=== PATIENT | female | born 1980 | race Caucasian/White ===

== ENCOUNTER 2016-06-02 15:36 | Emergency (ER) | payer OTHER ==
[~2016-06-02] VITALS: Ht 162.6 cm; Wt 122.5 kg
[~2016-06-02 15:36] MED LIST: ALLOPURINOL300 M1 PO; ASPIRIN81 M1 PO; CIPRO500 M1 PO; CYCLOBENZAPRINE10 M1 PO; FLEXERIL10 MG PO; FLOMAX(MONOGRA0.4 MG PO; GOOD SENSE IBU200 MG PO; LABETALOL HCL300 MG PO; LABETALOL HYDR200 MG PO; LEVSIN0.125 MG PO; MOTRIN600 MG PO; PERCOCET 325 MG1 TA2 PO; PERCOCET 5-3251 EACH PO; PRENATAL VITAMI1 TA4 PO; SERTRALINE HCL100 MG PO; TRAMADOL50 MG PO; UROCIT-K15 ME1 PO; XANAX1 M1 PO; ZOFRAN 4 MG TABL4 MG PO; ZOFRAN ODT4 MG PO
--- NOTE | 2016-06-02 18:41 | ED GI/GU/ABDOMINAL COMPLAINT ---
History of Present Illness General Chief Complaint: Abdominal Pain/Flank Pain Stated Complaint: LEFT FLANK PAIN, NAUSEA, VOMITTING Source: patient Exam Limitations: no limitations Vital Signs & Intake/Output Vital Signs & Intake/Output Vital Signs Date Time Temp Pulse Resp B/P Pulse O2 O2 Flow FiO2 Ox Delivery Rate 06/02 2100 98.2 77 16 154/95 97 Room Air 06/02 1551 96.7 84 18 140/100 97 Room Air Allergies Coded Allergies: Penicillins (Severe, THROAT CLOSES 10/18/15) Iodinated Contrast Media - Oral and (IODINATED CONTRAST MEDIA - IV DYE) ( Intermediate, PRURITIS 10/18/15) iodine (Mild, ITCHING 10/18/15) meperidine (Mild, ITCHING 10/18/15) Reconcile Medications Alprazolam (Xanax) 1 MG TABLET 1 TAB PO TID PRN ANXIETY (Reported) Levonorgestrel (Mirena) 20 MCG/24 HOUR (5 YEARS) IUD CONTROL (Reported) Oxycodone HCl/Acetaminophen (Percocet 5-325 MG Tablet) 5 MG-325 MG TABLET 1 TAB PO Q6HR PRN PAIN Quetiapine Fumarate 100 MG TABLET 1 TAB PO PRN SLEEPING (Reported) Sertraline HCl 100 MG TABLET 2 TAB PO DAILY MENTAL HEALTH (Reported) Triage Note: PT TO TRIAGE WITH C/O L FLANK PAIN 8/10, PAIN WITH URINATION, LUQ ABD PAIN, NAUSEA, VOMITINGx1 SINCE THIS MORNING, DIARRHEA xWEEK. PT AFEBRILE,VSS. HX OF KIDNEY STONES AND CROHN'S. Triage Nurses Notes Reviewed? yes ? n Is pt currently ? No Onset: Gradual Duration: hour(s): (4) Timing: recent history Quality/Severity: sharpness Severity Numbers: 8 Location: left flank Radiation: LLQ Activities at Onset: none Prior Abdominal Problems: similar symptoms Past Sexual History: Unobtainable at this time No Modifying Factors: none HPI: Patient is a 36-year-old female with history of Crohn's and kidney stones and anxiety presenting to the emergency department with chief complaint of left flank pain has been going on for the past 4-5 hours. Pain is sharp in nature. Pain radiates to the left lower quadrant. Patient has associated nausea but no vomiting. She did have some dysuria yesterday but none today. She has not noticed any hematuria. Positive history kidney stones. She had a ureteral stent placed in April that was removed because her body was rejecting it. Denies any diarrhea. No change in bowel habits. She does report decreased by mouth intake over the past several days because she had a viral syndrome for which she was diagnosed at an urgent care. She also had fevers a few days ago. No fever today. Denies any headaches. No lightheadedness or dizziness. She does not take anything daily for her Crohn's. (MUNA FOX) Past History Travel History Traveled to [place] past 21 day No Medical History Any Pertinent Medical History? see below for history Neurological: NONE EENT: NONE Cardiovascular: hypertension Respiratory: NONE Gastrointestinal: Crohn's disease, irritable bowel syndrome, pancreatitis Hepatic: FATTY LIVER Renal: nephrolithiasis Psychiatric: anxiety Blood Disorders: NONE Cancer(s): NONE Surgical History Surgical History: cholecystectomy (OPEN), , COLON RESECTION Psychosocial History Who do you live with Patient/Self Services at Home None What is your primary language Urdu Tobacco Use: Never used Family History Hx Contributory? No (MUNA FOX) Review of Systems Review of Systems Constitutional: Reports: fever. Comments Review of systems: See HPI, All other systems negative. Constitutional, no chills fever or weight loss HEENT: No visual changes no sore throat no congestion Cardiovascular: No chest pain ,palpitation Skin, no jaundice no rashes Respiratory: No dyspnea cough sputum or hemoptysis GI: no vomiting : No hematuria Muscle skeletal: no back pain, no neck pain, Neurologic: No numbness no confusion no jordan Psych: No stress anxiety Immunology: No splenectomy or history of AIDS (MUNA FOX) Physical Exam Physical Exam General Appearance: well developed/nourished, no apparent distress, alert, awake , comfortable Gastrointestinal: normal bowel sounds, soft, guarding, tenderness Comments: Well-developed well-nourished person in no acute distress HEENT: . Pupils equally round and reactive to light and accommodation. Nose is atraumatic. Neck: Normal inspection Back: Nontender, no CVA tenderness. Cardiovascular: Regular rate and rhythms no murmurs rubs or gallops Respiratory: No respiratory distress.breath sounds clear to auscultation bilaterally Abdomen: Soft, obese, tender to palpation in the periumbilical, left lower quadrant and left upper quadrant with mild guarding, nondistended, no appreciable organomegaly. Normal bowel sounds. No ascites Extremity: No edema Neuro: Alert oriented x3 Skin: No appreciable rash on exposed skin, skin is warm and dry. Psych: Mood and affect is normal, memory and judgment is normal. Core Measures ACS in differential dx? No Severe Sepsis Present: No Septic Shock Present: No (VLAD GUARDADO,MUNA) Progress Differential Diagnosis: pyelonephritis, hydronephrosis, ureterolithiasis, diverticulitis, Crohn's flareup, gastritis Plan of Care: Orders Procedure Date/time Status Add-on Test (ER Only) 06/02 2046 Active CULTURE,URINE 06/02 1925 Active COMPREHENSIVE METABOLIC PANEL 06/02 1840 Complete CBC WITHOUT DIFFERENTIAL 06/02 1840 Complete URINE 06/02 1755 Complete URINALYSIS 06/02 1755 Complete Laboratory Tests 06/02/16 1950: CBC w Diff NO MAN DIFF REQ, RBC 5.63 H, MCV 80.8 L, MCH 27.4, RDW 13.8, MPV 7.6, Gran % 51.6, Lymphocytes % 33.8, Monocytes % 11.1 H, Eosinophils % 3.1, Basophils % 0.4, Absolute Granulocytes 3.5, Absolute Lymphocytes 2.3, Absolute Monocytes 0.8 H, Absolute Eosinophils 0.2, Absolute Basophils 0, PUBS MCHC 33.9 06/02/161925: Urine Color YEL, Urine Clarity CLDY H, Urine pH 7.0, Ur Specific [place] 1.020, Urine Protein 30 H, Urine Ketones TRACE H, Urine Nitrite NEG, Urine Bilirubin NEG@ICTO, Urine Urobilinogen 1.0, Ur Leukocyte Esterase SMALL H, Ur Microscopic SEDIMENT EXAMINED, Urine WBC 5-10 H, Ur Epithelial Cells MOD H, Urine Crystals 1+ CA OX H, Urine Mucus MANY H, Urine Hemoglobin NEG, Urine Glucose NEG, Urine Test NEGATIVE 06/02/161849: Anion Gap 11, Estimated GFR > 60, BUN/Creatinine Ratio 20.0, Glucose 86, Calcium 9.5, Total Bilirubin 0.7, AST 37 H, ALT 78 H, Alkaline Phosphatase 68, Total Protein 6.8, Albumin 3.9, Globulin 2.9, Albumin/Globulin Ratio 1.3 Microbiology 06/02 1925 URINE ROUT: Urine Culture - RECD Diagnostic Imaging: Viewed by Me: CT Scan. Discussed w/RAD: CT Scan. Radiology Impression: PATIENT: ROBIN SCOTT PRESENT AGE: 36 PATIENT ACCOUNT NO: [id number] : 81 LOCATION: [facility] ORDERING PHYSICIAN: MUNA GUARDADO SERVICE DATE: 06/02/16 EXAM TYPE: CAT - CT ABD & PELVIS W/O IV CONTRAS EXAMINATION: CT ABDOMEN AND PELVIS WITHOUT CONTRAST CLINICAL INFORMATION: Left flank pain. COMPARISON: 12/04/2015 TECHNIQUE : Multidetector volumetric imaging was performed from the superior aspect of the liver through the pubic symphysis. Sagittal and coronal reformatted images were obtained on the technologist's workstation. DLP: 1414 mGy-cm FINDINGS: LUNG BASES: The visualized lung bases are unremarkable. LIVER, GALLBLADDER, AND BILIARY TREE: The liver is normal in size and shape with decreased attenuation. No biliary ductal dilatation is present. Multiple areas of focal fatty sparing are again noted with a somewhat nodular appearance. The gallbladder is absent. PANCREAS: Unremarkable. SPLEEN: Unremarkable. ADRENAL GLANDS: Unremarkable. KIDNEYS AND URETERS: The kidneys are normal in size, shape, and attenuation. No hydronephrosis, hydroureter, or calculi seen. No perinephric stranding. BLADDER: Unremarkable. GASTROINTESTINAL TRACT: The stomach and small bowel appear unremarkable. No dilated loops of bowel or evidence of obstruction. Anastomotic suture line at the hepatic flexure of the colon, consistent with partial colectomy. This is unchanged. No free air or free fluid. ABDOMINAL WALL: No significant hernia is appreciated. LYMPH NODES: Normal. VASCULAR: Unremarkable. PELVIC VISCERA: An IUD is in place. No adnexal mass. OSSEOUS STRUCTURES: No acute or suspicious osseous abnormality. IMPRESSION: No acute findings of the abdomen or pelvis. No hydronephrosis or nephrolithiasis. Hepatic steatosis. DICTATED BY: PHILIPP NUNEZ MD DATE/TIME DICTATED:06/02/162013 STABILIZING MACHINE OPERATOR:LUISA DATE/TIME TRANSCRIBED:06/02/162013 CONFIDENTIAL, DO NOT COPY WITHOUT APPROPRIATE AUTHORIZATION. <Electronically signed in Other Vendor System> SIGNED BY: PHILIPP NUNEZ MD 06/02/162025 Initial ED EKG: none Comments: 06/02/2016 6:49:20 PM on arrival patient in no acute distress, afebrile. She does have reproducible pain in the left lower quadrant and left flank region. No CVA tenderness. Patient has recent history of ureterolithiasis with stent placement. She was complaining about dysuria yesterday. Considering kidney stone. Patient will have CBC, CMP, urinalysis, urine . IV fluids initiated. 06/02/2016 8:46:51 PM patient feeling much better after Zofran and morphine. Patient was informed of all laboratory results and imaging study results. There are crystals in the urine but no obvious stone on CAT scan. It was explained that there potentially could be a small stone. She'll follow-up with her urologist. Urine culture sent. (VLAD GUARDADO,MUNA) Departure Departure Time of Disposition: 2044 Disposition: HOME OR SELF CARE Condition: Stable Clinical Impression Primary Impression: Flank pain Referrals: ROQUE HUGHES MD (PCP/Family) Additional Instructions: Follow-up with your urologist. Increase fluids. Take Percocet as prescribed for pain. Use restrainer they have at home and see if he gets any stones. Attach ARE YOUR CAT scan results. PATIENT: ROBIN SCOTT PRESENT AGE: 36 PATIENT ACCOUNT NO: [id number] : 81 LOCATION: [facility] ORDERING PHYSICIAN: MUNA GUARDADO SERVICE DATE: 06/02/16 EXAM TYPE: CAT - CT ABD & PELVIS W/O IV CONTRAS EXAMINATION: CT ABDOMEN AND PELVIS WITHOUT CONTRAST CLINICAL INFORMATION: Left flank pain. COMPARISON: 12/04/2015 TECHNIQUE: Multidetector volumetric imaging was performed from the superior aspect of the liver through the pubic symphysis. Sagittal and coronal reformatted images were obtained on the technologist's workstation. DLP: 1414 mGy-cm FINDINGS: LUNG BASES: The visualized lung bases are unremarkable. LIVER, GALLBLADDER, AND BILIARY TREE: The liver is normal in size and shape with decreased attenuation. No biliary ductal dilatation is present. Multiple areas of focal fatty sparing are again noted with a somewhat nodular appearance. The gallbladder is absent. PANCREAS: Unremarkable. SPLEEN: Unremarkable. ADRENAL GLANDS: Unremarkable. KIDNEYS AND URETERS: The kidneys are normal in size, shape, and attenuation. No hydronephrosis, hydroureter, or calculi seen. No perinephric stranding. BLADDER: Unremarkable. GASTROINTESTINAL TRACT: The stomach and small bowel appear unremarkable. No dilated loops of bowel or evidence of obstruction. Anastomotic suture line at the hepatic flexure of the colon, consistent with partial colectomy. This is unchanged. No free air or free fluid. ABDOMINAL WALL: No significant hernia is appreciated. LYMPH NODES: Normal. VASCULAR: Unremarkable. PELVIC VISCERA: An IUD is in place. No adnexal mass. OSSEOUS STRUCTURES: No acute or suspicious osseous abnormality. IMPRESSION: No acute findings of the abdomen or pelvis. No hydronephrosis or nephrolithiasis. Hepatic steatosis. DICTATED BY: PHILIPP NUNEZ MD DATE/TIME DICTATED:06/02/162013 STABILIZING MACHINE OPERATOR:LUISA DATE/TIME TRANSCRIBED:06/02/162013 CONFIDENTIAL, DO NOT COPY WITHOUT APPROPRIATE AUTHORIZATION. <Electronically signed in Other Vendor System> SIGNED BY: PHILIPP NUNEZ MD 06/02 Departure Forms: Customer Survey General Discharge Information Prescriptions: Current Visit Scripts Oxycodone HCl/Acetaminophen (Percocet 5-325 MG Tablet) 1 TAB PO Q6HR PRN PAIN #10 TAB (MUNA FOX) PA/AUDITOR/QUALITY Co-Sign Statement Statement: ED Attending supervision documentation- [] I saw and evaluated the patient. I have also reviewed all the pertinent lab results and diagnostic results. I agree with the findings and the plan of care as documented in the PA's/AUDITOR/QUALITY's documentation. x I have reviewed the ED Record and agree with the PA's/AUDITOR/QUALITY's documentation. [] Additions or exceptions (if any) to the PAs/AUDITOR/QUALITY's note and plan are summarized below: [] (KHUSHBU SANCHEZ,OSKAR)
[2016-06-02] MEDS ORDERED: QUETIAPINE FUM100 M1 PO (19:39)
[2016-06-02] MEDS ORDERED: MIRENA1 EACH (19:40)
[2016-06-02 19:41] LABS: ABSOLUTE BASOPHIL COUNT 0 /CUMM (0.0-0.2); ABSOLUTE EOSINOPHIL COUNT 0.2 /CUMM (0.0-0.7); ABSOLUTE GRANULOCYTE CT 3.5 /CUMM (1.4-6.5); ABSOLUTE LYMPH COUNT 2.3 /CUMM (1.2-3.4); ABSOLUTE MONOCYTE COUNT 0.8 /CUMM (0.10-0.60); BASOPHIL % 0.4 % (0.0-2.0); EOSINOPHIL % 3.1 % (0-5); GRANULOCYTE % 51.6 % (42.2-75.2); HEMATOCRIT 45.5 % (37-47); MEAN CORPUSCULAR HGB 27.4 PG (27.0-31.0); MEAN CORPUSCULAR HGB CONC 33.9 G/DL (33.0-37.0); MEAN CORPUSCULAR VOLUME 80.8 FL (81.0-99.0); MEAN PLATELET VOLUME 7.6 FL (7.4-10.4); PLATELET COUNT 333 /CUMM (130-400); RBC DISTRIBUTION WIDTH 13.8 % (11.5-14.5); RED BLOOD CELL CT 5.63 /CUMM (4.20-5.40); WHITE BLOOD CELL COUNT 6.8 /CUMM (4.8-10.8)
--- NOTE | 2016-06-02 20:26 | CT SCAN REPORT ---
EXAMINATION: CT ABDOMEN AND PELVIS WITHOUT CONTRAST CLINICAL INFORMATION: Left flank pain. COMPARISON: 12/04/2015 TECHNIQUE: Multidetector volumetric imaging was performed from the superior aspect of the liver through the pubic symphysis. Sagittal and coronal reformatted images were obtained on the technologist's workstation. DLP: 1414 mGy-cm FINDINGS: LUNG BASES: The visualized lung bases are unremarkable. LIVER, GALLBLADDER, AND BILIARY TREE: The liver is normal in size and shape with decreased attenuation. No biliary ductal dilatation is present. Multiple areas of focal fatty sparing are again noted with a somewhat nodular appearance. The gallbladder is absent. PANCREAS: Unremarkable. SPLEEN: Unremarkable. ADRENAL GLANDS: Unremarkable. KIDNEYS AND URETERS: The kidneys are normal in size, shape, and attenuation. No hydronephrosis, hydroureter, or calculi seen. No perinephric stranding. BLADDER: Unremarkable. GASTROINTESTINAL TRACT: The stomach and small bowel appear unremarkable. No dilated loops of bowel or evidence of obstruction. Anastomotic suture line at the hepatic flexure of the colon, consistent with partial colectomy. This is unchanged. No free air or free fluid. ABDOMINAL WALL: No significant hernia is appreciated. LYMPH NODES: Normal. VASCULAR: Unremarkable. PELVIC VISCERA: An IUD is in place. No adnexal mass. OSSEOUS STRUCTURES: No acute or suspicious osseous abnormality. IMPRESSION: No acute findings of the abdomen or pelvis. No hydronephrosis or nephrolithiasis. Hepatic steatosis.
[2016-06-02] MEDS ORDERED: PERCOCET 5-3251 EACH PO (20:49)
[2016-06-02 21:00] VITALS: BP 154/95
== END 2016-06-02 21:06 ==
LOC: ERH 15:36
PROVIDERS: Physician Assistant
DX: R10.32 Left lower quadrant pain (principal)
CPT/HCPCS: 74176; 81001; 81025; 87086; 96361; 96374; 96375; J2405

== ENCOUNTER 2017-07-21 11:21 | Emergency (ER) | payer OTHER ==
[~2017-07-21] VITALS: Ht 162.6 cm; Wt 117.9 kg
[~2017-07-21 11:21] MED LIST changes: +LEVSIN-SL0.125 MG SL; +MIRENA1 EACH; +QUETIAPINE FUM100 M1 PO; +ULTRAM50 M1 PO; +ZOFRAN ODT4 M1 SL
--- NOTE | 2017-07-21 12:15 | ED GI/GU/ABDOMINAL COMPLAINT ---
History of Present Illness General Chief Complaint: Abdominal Pain/Flank Pain Stated Complaint: ABD PAIN Source: patient, old records Exam Limitations: no limitations Vital Signs & Intake/Output Vital Signs & Intake/Output Vital Signs Date Time Temp Pulse Resp B/P B/P Pulse O2 O2 Flow FiO2 Mean Ox Delivery Rate 07/21 1513 98.1 62 20 160/85 99 Room Air 07/21 1302 97.8 77 20 177/85 98 Room Air 07/21 1205 96.6 79 14 158/126 99 Room Air Allergies Coded Allergies: Penicillins (Severe, THROAT CLOSES 10/18/15) Iodinated Contrast- Oral and IV Dye (IODINATED CONTRAST MEDIA - IV DYE) ( Intermediate, PRURITIS 10/18/15) iodine (Mild, ITCHING 10/18/15) meperidine (Mild, ITCHING 10/18/15) Reconcile Medications Alprazolam (Xanax) 1 MG TABLET 1 TAB PO TID PRN ANXIETY (Reported) Amlodipine Besylate (Norvasc) 5 MG TABLET 1 TAB PO DAILY HEART (Reported) Hyoscyamine Sulfate (Levsin-Sl) 0.125 MG TAB.SUBL 1-2 TAB SL Q4P PRN abdominal pain Levonorgestrel (Mirena) 20 MCG/24 HOUR (5 YEARS) IUD CONTROL (Reported) Sertraline HCl 100 MG TABLET 2 TAB PO DAILY MENTAL HEALTH (Reported) Tramadol HCl (Ultram) 50 MG TABLET 1 TAB PO BIDP PRN pain Triage Note: PT PRESENTS TO THE ER WITH LEFT SIDE ABD PAIN, WITH VAGINAL AND RECTAL BLEEDING. PT STATES THAT HER BM IS GREEN BUT IN THE WATER IT IS RED. PT STATES THAT THE PAIN 8/10. PT HAS HX OF CROHNS BUT DENIES FLARE UP FOR 1 YEAR. PT DENIES DIZZINESS BUT STATES THAT SHE HAS BEEN NAUSEOUS SINCE LAST NIGHT BUT DENIES VOMITTING. Triage Nurses Notes Reviewed? yes ? n Is pt currently ? No Onset: Gradual Duration: day(s): Timing: recent history Quality/Severity: severe Severity Numbers: 8 Location: left lower quadrant, left upper quadrant Radiation: flank HPI: 37yo female with hx of Crohn's disease, pyelonephritis presents to ED complaining of abdominal pain beginning yesterday. Patient reports left-sided abdominal pain radiating toward her left flank described as gradually worsening, 8/10, constant. Patient also reports vaginal spotting beginning yesterday. Patient has a Mirena IUD and does not usually get her period. Patient reports blood on tissue paper when she wipes after a BM her stool appeared clean. Patient states that she has not a Crohn's flareup for over one year and that this pain feels different than previous Crohn's flareups. Patient is worried because she has a history of left-sided pyelonephritis in the past which she required six-day hospital admission for and antibiotics via PICC line in 05/28. Patient reports nausea beginning last night. The patient denies fevers, chills, vomiting, diarrhea, constipation, dysuria. Past History Travel History Traveled to [place] past 21 day No Medical History Any Pertinent Medical History? see below for history Neurological: NONE EENT: NONE Cardiovascular: hypertension Respiratory: NONE Gastrointestinal: Crohn's disease, irritable bowel syndrome, pancreatitis Hepatic: FATTY LIVER Renal: nephrolithiasis Musculoskeletal: NONE Psychiatric: anxiety Endocrine: NONE Blood Disorders: NONE Cancer(s): NONE Surgical History Surgical History: cholecystectomy (OPEN), , COLON RESECTION Psychosocial History Who do you live with Patient/Self Services at Home None What is your primary language Niuean Tobacco Use: Never used Family History Hx Contributory? No Review of Systems Review of Systems Constitutional: Reports: no symptoms. EENTM: Reports: no symptoms. Respiratory: Reports: no symptoms. Cardiovascular: Reports: no symptoms. GI: Reports: see HPI. Genitourinary: Reports: see HPI. Musculoskeletal: Reports: no symptoms. Skin: Reports: no symptoms. Neurological/Psychological: Reports: no symptoms. Hematologic/Endocrine: Reports: no symptoms. Immunologic/Allergic: Reports: no symptoms. All Other Systems: Reviewed and Negative Physical Exam Physical Exam General Appearance: well developed/nourished, no apparent distress, alert, awake Head: atraumatic, normal appearance Eyes: Bilateral: normal appearance. Ears, Nose, Throat, Mouth: hearing grossly normal Neck: normal inspection, supple, full range of motion Respiratory: normal breath sounds, no respiratory distress, lungs clear Cardiovascular: regular rate/rhythm Gastrointestinal: normal bowel sounds, soft, healed surgical scars, LUQ tenderess, LLQ tenderness Back: normal inspection, normal range of motion, no CVA tenderness Extremities: normal range of motion Neurologic/Psych: awake, alert, oriented x 3 Skin: intact, normal color, warm/dry Core Measures ACS in differential dx? No Sepsis Present: No Sepsis Focused Exam Completed? No Progress Differential Diagnosis: bowel obstruction, diverticulitis, gastritis, hernia, inflamm bowel dis, intrauterine , ovarian cyst, peptic ulcer, PUD/GERD, SBO Plan of Care: Orders Procedure Date/time Status Add-on Test (ER Only) 07/21 1245 Active PARTIAL THROMBOPLASTIN TIME 07/21 1225 Complete PROTHROMBIN TIME 07/21 1225 Complete URINALYSIS 07/21 1216 Complete LIPASE 07/21 1216 Complete COMPREHENSIVE METABOLIC PANEL 07/21 1216 Complete CBC WITHOUT DIFFERENTIAL 07/21 1216 Complete URINE 07/21 1205 Complete Laboratory Tests 07/21/17 1225: Urine Test NEGATIVE 07/21/17 1225: Anion Gap 13, Estimated GFR > 60, BUN/Creatinine Ratio 24.0, Glucose 91, Calcium 9.4, Total Bilirubin 0.6, AST 15, ALT 31, Alkaline Phosphatase 71, Total Protein 7.3, Albumin 4.4, Globulin 2.9, Albumin/Globulin Ratio 1.5, Lipase 386 H, PT 9.6, INR 0.88 L, APTT 30, CBC w Diff NO MAN DIFF REQ, RBC 5.23, MCV 80.7 L, MCH 27.6, MCHC 34.2, RDW 14.1, MPV 7.9, Gran % 69.8, Lymphocytes % 23.5, Monocytes % 4.1, Eosinophils % 1.9, Basophils % 0.7, Absolute Granulocytes 6.8 H, Absolute Lymphocytes 2.3, Absolute Monocytes 0.4, Absolute Eosinophils 0.2, Absolute Basophils 0.1, Urinalysis LIGHT H, Urine Color YEL, Urine Clarity HAZY H, Urine pH 6.0, Ur Specific [place] 1.025, Urine Protein TRACE H, Urine Ketones NEG, Urine Nitrite NEG, Urine Bilirubin NEG, Urine Urobilinogen 0.2, Ur Leukocyte Esterase TRACE H, Ur Microscopic SEDIMENT EXAMINED, Urine RBC 50-75 H, Urine WBC 1-3 H, Ur Epithelial Cells MOD H, Urine Bacteria MOD H, Urine Hemoglobin LARGE H, Urine Glucose NEG CT scan is within normal limits, no acute findings. Patient's blood work is within normal limits. Patient has a transmission calibration engineer in [place], she believes she will be able to make an appointment within the next week. Patient is comfortable, no acute distress, vital signs are stable. Patient feels comfortable going home at this time based on her normal workup. Patient's IUD was in the appropriate position on CT scan. She was recommended to follow up with her SLICING MACHINE TENDER regarding vaginal bleeding, vaginal bleeding likely related to RBCs seen on patient's urine. Patient has no dysuria, will not treat for UTI at this time. The patient agrees with the plan of care, she'll follow up as directed. Diagnostic Imaging: Viewed by Me: CT Scan. Discussed w/RAD: CT Scan. Radiology Impression: PATIENT: ROBIN SCOTT PRESENT AGE: 37 PATIENT ACCOUNT NO: [id number] : 81 LOCATION: [facility] ORDERING PHYSICIAN: Becky GUARDADO SERVICE DATE: 07/21/17 EXAM TYPE: CAT - CT ABD & PELVIS W/O IV CONTRAS EXAMINATION: CT ABDOMEN AND PELVIS WITHOUT CONTRAST CLINICAL INFORMATION: 37-year-old female patient with history of Crohn' s disease presents with left upper and left lower quadrant pain. Hematuria. Presumptive diagnosis: Colitis, small bowel obstruction, pyelonephritis, kidney stone. COMPARISON: CT of the abdomen and pelvis on June 02, 2016. (Normal). CT of the abdomen and pelvis on December 04, 2015. (Normal). CT of the abdomen and pelvis on May 29, 2015. (Small nonobstructing calculus left kidney). TECHNIQUE: Multidetector volumetric imaging was performed from the superior aspect of the liver through the pubic symphysis. Sagittal and coronal reformatted images were obtained on the technologist's workstation. DLP: 1379 mGy-cm FINDINGS: MAIL LIST LIBRARIAN: There is no evidence of intestinal obstruction. An IUD is located midline of the pelvis. LUNG BASES: The visualized lung bases are unremarkable. LIVER, GALLBLADDER, AND BILIARY TREE: The liver is normal in size, shape, and attenuation. No focal hepatic lesion or biliary ductal dilatation is present. The gallbladder is absent. PANCREAS: Unremarkable. SPLEEN: Unremarkable. ADRENAL GLANDS: Unremarkable. KIDNEYS AND URETERS: The kidneys are normal in size, shape, and attenuation. No hydronephrosis, hydroureter, or calculi seen. No perinephric stranding. BLADDER: Partially filled and unremarkable. GASTROINTESTINAL TRACT: The stomach and small bowel are normal. The patient had a right hemicolectomy. The the ileocolostomy is normal. The colon is normal. ABDOMINAL WALL: No significant hernia is appreciated. LYMPH NODES: Normal. VASCULAR: Unremarkable. PELVIC VISCERA: The IUD is centrally located within the endometrium. OSSEOUS STRUCTURES: Unremarkable. IMPRESSION: 1. No evidence of obstructive uropathy or stone disease. 2. No sign of IBD. DICTATED BY: Fermin Zarco MD DATE/TIME DICTATED:07/21/171427 ART OBJECTS REPAIRER:LUISA DATE/TIME TRANSCRIBED:07/21/171427 CONFIDENTIAL, DO NOT COPY WITHOUT APPROPRIATE AUTHORIZATION. <Electronically signed in Other Vendor System> SIGNED BY: Fermin Zarco MD 07/21/17 1444 Initial ED EKG: none Departure Departure Disposition: HOME OR SELF CARE Condition: Stable Clinical Impression Primary Impression: Abdominal pain Referrals: Lucho Baptiste MD (PCP/Family) Additional Instructions: Take tramadol as prescribed as needed for pain, this medication can cause constipation if you feel constipated begin Colace or other stool softener. Follow Up with your GI doctor, call to make an appointment for next week. Continue fluids. Return with any worsening symptoms or concerns such as increasing abdominal pain, vomiting, high fevers. Please note that there might be incidental findings in your evaluation that are unrelated to the current emergency department visit. Please notify your primary care doctor about this emergency department visit in order to obtain and review all of the testing performed so that these incidental findings can be monitored as needed. If you had an x-ray performed, please understand that some fractures may not be seen on the initial set of x-rays. If your symptoms persist you might need a repeat set of x-rays to check for such a fracture. If you had a laceration evaluated, please understand that foreign bodies such as glass or wood may not be visible to the naked eye or on plain x-rays. If the wound becomes red, swollen, increasingly more painful or if there is any drainage from the wound, please have it reevaluated by a physician for the possibility of a retained foreign body. If you're unable to follow up as outlined in the discharge instructions please return to the emergency department. Thank you for choosing the [facility] Emergency Department for your care. It was a pleasure to serve you today. Departure Forms: Customer Survey General Discharge Information Prescriptions: Current Visit Scripts Tramadol HCl (Ultram) 1 TAB PO BIDP PRN pain #10 TAB
[2017-07-21 12:36] LABS: ABSOLUTE BASOPHIL COUNT 0.1 /CUMM (0.0-0.2); ABSOLUTE EOSINOPHIL COUNT 0.2 /CUMM (0.0-0.7); ABSOLUTE GRANULOCYTE CT 6.8 /CUMM (1.4-6.5); ABSOLUTE LYMPH COUNT 2.3 /CUMM (1.2-3.4); ABSOLUTE MONOCYTE COUNT 0.4 /CUMM (0.10-0.60); BASOPHIL % 0.7 % (0.0-2.0); EOSINOPHIL % 1.9 % (0-5); GRANULOCYTE % 69.8 % (42.2-75.2); HEMATOCRIT 42.2 % (37-47); MEAN CORPUSCULAR HGB 27.6 PG (27.0-31.0); MEAN CORPUSCULAR HGB CONC 34.2 G/DL (33.0-37.0); MEAN CORPUSCULAR VOLUME 80.7 FL (81.0-99.0); MEAN PLATELET VOLUME 7.9 FL (7.4-10.4); PLATELET COUNT 364 /CUMM (130-400); RBC DISTRIBUTION WIDTH 14.1 % (11.5-14.5); RED BLOOD CELL CT 5.23 /CUMM (4.20-5.40); WHITE BLOOD CELL COUNT 9.7 /CUMM (4.8-10.8)
[2017-07-21 12:58] LABS: PT 9.6 SEC (9.4-12.5); PTT 30 SEC (25-37)
[2017-07-21] MEDS ORDERED: NORVASC5 M1 PO (13:05)
--- NOTE | 2017-07-21 14:47 | CT SCAN REPORT ---
EXAMINATION: CT ABDOMEN AND PELVIS WITHOUT CONTRAST CLINICAL INFORMATION: 37-year-old female patient with history of Crohn's disease presents with left upper and left lower quadrant pain. Hematuria. Presumptive diagnosis: Colitis, small bowel obstruction, pyelonephritis, kidney stone. COMPARISON: CT of the abdomen and pelvis on June 02, 2016. (Normal). CT of the abdomen and pelvis on December 04, 2015. (Normal). CT of the abdomen and pelvis on May 29, 2015. (Small nonobstructing calculus left kidney). TECHNIQUE: Multidetector volumetric imaging was performed from the superior aspect of the liver through the pubic symphysis. Sagittal and coronal reformatted images were obtained on the technologist's workstation. DLP: 1379 mGy-cm FINDINGS: AVIATION PROJECT MANAGER: There is no evidence of intestinal obstruction. An IUD is located midline of the pelvis. LUNG BASES: The visualized lung bases are unremarkable. LIVER, GALLBLADDER, AND BILIARY TREE: The liver is normal in size, shape, and attenuation. No focal hepatic lesion or biliary ductal dilatation is present. The gallbladder is absent. PANCREAS: Unremarkable. SPLEEN: Unremarkable. ADRENAL GLANDS: Unremarkable. KIDNEYS AND URETERS: The kidneys are normal in size, shape, and attenuation. No hydronephrosis, hydroureter, or calculi seen. No perinephric stranding. BLADDER: Partially filled and unremarkable. GASTROINTESTINAL TRACT: The stomach and small bowel are normal. The patient had a right hemicolectomy. The the ileocolostomy is normal. The colon is normal. ABDOMINAL WALL: No significant hernia is appreciated. LYMPH NODES: Normal. VASCULAR: Unremarkable. PELVIC VISCERA: The IUD is centrally located within the endometrium. OSSEOUS STRUCTURES: Unremarkable. IMPRESSION: 1. No evidence of obstructive uropathy or stone disease. 2. No sign of IBD.
[2017-07-21 15:13] VITALS: BP 160/85
[2017-07-21] MEDS ORDERED: ULTRAM50 M1 PO (15:28)
== END 2017-07-21 15:39 ==
LOC: ERH 11:21
PROVIDERS: Physician Assistant
DX: R10.32 Left lower quadrant pain (principal)
CPT/HCPCS: 74176; 81001; 81025; 96374; 96375; J1200; J1885; J2405